=== PATIENT | male | born 1975 | race Two or more races ===

== ENCOUNTER 2017-03-09 09:02 | Day surgery (SDC) | payer OTHER ==
[~2017-03-09 09:02] MED LIST: FENTANYL 250 MCG/5 ML AMP IV PRN; LACTATED RINGERS 1,000 ML IV SCH; LIDOCAINE Viscous 2% 15 ML UDCUP PO PRN; MIDAZOLAM HCL 5 MG/5 ML VIAL IV PRN
[2017-03-09] MEDS ORDERED: IV START KIT ONE (09:25)
[2017-03-09] MEDS ORDERED: LIDOCAINE Viscous 2% 15 ML UDCUP ONE (10:20)
[2017-03-09] MEDS ORDERED: FENTANYL 100 MCG/2 ML VIAL ONE (10:20)
[2017-03-09] MEDS ORDERED: MIDAZOLAM HCL 5 MG/5 ML VIAL ONE (10:20)
[2017-03-09 16:47] LABS: HELICOBACTER PYLORII DETECTION NEGATIVE (NEGATIVE)
--- NOTE | 2017-03-11 17:44 | SURGPATH ---
[facility] [address] [place] [id number] Patient Name: RIN CHINCHILLA MR#: [id number] : 1975 Gender: M Specimen #: [id number] Collected: 03/09/2017 Received: 03/10/2017 Reported: 03/11/2017 Submitting Phys: SHIRLEY BLACKBURN Copy To Phys: [facility] Clinical History / Pre-Operative Diagnosis: Dysphagia, heartburn, rule out; giardia, celiac, gastritis Specimen Source / Surgical Procedure Performed: #1 duodenal biopsy, #2 antral biopsy Interpretation: 1. DUODENUM, BIOPSY: - SMALL BOWEL MUCOSA SHOWING NO DIAGNOSTIC ABNORMALITIES. - NO EVIDENCE OF CELIAC DISEASE. - NO EVIDENCE OF SIGNIFICANT INFLAMMATION, VILLOUS BLUNTING, OR MALIGNANCY. 2. GASTRIC ANTRUM, BIOPSY: - MILD REACTIVE GASTROPATHY. - NO MICROORGANISMS IDENTIFIED WITH ROUTINE STAINING. - NO EVIDENCE OF SIGNIFICANT INFLAMMATION, INTESTINAL METAPLASIA, OR MALIGNANCY. Electronically Signed Out Roscoe Green M.D., Ph.D. Gross Description: 1. The specimen is received in formalin labeled with the patient's name and "duodenal". The specimen consists of two fragments of andrews soft tissue each is 0.2-0.4 cm in greatest dimension. Submitted in toto in one cassette 2. The specimen is received in formalin labeled with the patient's name and "antrum". The specimen consists of two fragments of andrews soft tissue each is 0.2-0.6 cm in greatest dimension. Submitted in toto in one cassette MARILU Morris Microscopic Description: 1. Examination of multiple levels from the duodenum biopsy shows two fragments of histologically unremarkable small bowel mucosa. The villous architecture is intact without evidence of blunting. There is no evidence of increased intraepithelial lymphocytes. There is no evidence of significant inflammation or malignancy. 2. Examination of multiple levels from the gastric antrum biopsy of gastric mucosa with superficial smooth muscle proliferation associated with tortuous glands. The lamina propria is otherwise not expanded. No microorganisms identified with routine staining. There is no evidence of significant inflammation, intestinal metaplasia, or malignancy. 1: [id number] 2: 75615 K31.9
== END 2017-03-09 12:34 | disposition home or self-care (01) ==
LOC: SDC 09:02
PROVIDERS: ATTEND Internal Medicine Gastroenterology
PROC: 0DB68ZX Excision of Stomach, Via Natural or Artificial Opening Endoscopic, Diagnostic (ICD-10-PCS; principal; 2017-03-09)
PROC: 0DB98ZX Excision of Duodenum, Via Natural or Artificial Opening Endoscopic, Diagnostic (ICD-10-PCS; 2017-03-09)
DX: K29.70 Gastritis, unspecified, without bleeding (principal); K29.80 Duodenitis without bleeding
CPT/HCPCS: 87081; 43239; J3010; J2250; A9270; J7120